=== PATIENT | male | born 1985 | race Caucasian/White ===

== ENCOUNTER 2017-03-09 05:57 | Day surgery (SDC) | payer OTHER ==
[2017-03-09] VITALS (15 sets, daily range): BP systolic 105–158; BP diastolic 79–98; PULSE 62–85; RESP 13–25; O2SAT 96–100
[~2017-03-09] VITALS: Ht 182.9 cm; Wt 165.6 kg
[~2017-03-09 05:57] MED LIST: CETI10CA PO; CITA10TA9 PO; ESOM40CA41 PO; LEVO200T6 PO; LORA1TAB PO; Lactated Ringer's 1,000 ML IV ONE
[2017-03-09] MEDS ORDERED: Propofol 10,000 mCg/mL 20 mL Inj ONE (05:58)
[2017-03-09] MEDS ORDERED: Ondansetron 2 mg/mL 2 mL Inj ONE (05:58)
[2017-03-09] MEDS ORDERED: Succinylcholine Chloride 20 mg/mL 5 mL Inj ONE (05:58)
[2017-03-09] MEDS ORDERED: MetoCLOpramide 5 mg/mL 2 mL Inj ONE (05:58)
[2017-03-09] MEDS ORDERED: fentaNYL-PF 50 mCg/mL 2 mL Inj ONE (05:58)
[2017-03-09] MEDS ORDERED: Dexamethasone Inj 20 MG in Dextrose 5%-Pha MIX 50 ML IV SCH (06:00)
[2017-03-09] MEDS ORDERED: Lactated Ringer's 1,000 ML IV ONE (06:30)
[2017-03-09] MEDS ORDERED: Lidocaine 1%-Epi 1:100,000 50 mL Inj INFILTRATE ONE (07:40)
[2017-03-09] MEDS ORDERED: Phenylephrine 10,000 mCg/mL Inj IVPUSH PRN (07:40)
[2017-03-09] MEDS ORDERED: EPHEDrine Sulfate 50 mg/mL Inj IVPUSH PRN (07:40)
[2017-03-09] MEDS ORDERED: fentaNYL-PF 50 mCg/mL 2 mL Inj IVPUSH PRN (07:40)
[2017-03-09] MEDS ORDERED: Dexamethasone 4 mg/mL Inj IVPUSH PRN (07:40)
[2017-03-09] MEDS ORDERED: Lactated Ringer's 500 ML IV PRN (07:40)
[2017-03-09] MEDS ORDERED: Ondansetron 2 mg/mL 2 mL Inj IVPUSH PRN (07:40)
[2017-03-09] MEDS ORDERED: HYDROmorphone 1 mg/mL Inj IVPUSH PRN (07:40)
[2017-03-09] MEDS ORDERED: MetoCLOpramide 5 mg/mL 2 mL Inj IVPUSH PRN (07:40)
[2017-03-09] MEDS ORDERED: Bupivacaine 0.5% 50 mL Inj INFILTRATE ONE (07:40)
[2017-03-09] MEDS ORDERED: Lactated Ringer's 1,000 ML IV SCH (07:40)
--- NOTE | 2017-03-09 07:44 | PCM.HPANE ---
Patient Data Surgeon Admitting Provider: Attending Provider:Charbel Ham MD Primary Care Physician:Jose A Other Provider:Zeferino Leblanc Anesthesia Reason for Visit Chronic Tonsillitis Ht/WT & BMI Height (Feet): 6 Weight (Kilograms): 165.56 Body Mass Index 49.00 Allergies Coded Allergies: Penicillins (Verified Allergy, Unknown, rash, 03/02/17) sertraline (Verified Allergy, Unknown, 03/02/17) Past Anesthesia History Anesthesia History: Denies:: Anesthesia Reactions (no prior surgery) Diabetes History Hx Diabetes?: No MRSA MRSA: No Medications Hypertension Medication: No Home Meds Incl Beta Jorden: No Reported Medications Lorazepam 1 Mg Tablet1 Mg PO TID PRN For Anxiety Ref 0 03/02/17 Cetirizine HCl (Zyrtec)10 Mg [id number] Mg PO HS #30 CAPSULE Ref 0 03/02/17 Citalopram 10 Mg [id number] Mg PO DAILY Ref 0 03/02/17 Esomeprazole Magnesium (Nexium)40 Mg Capsule.dr40 Mg PO DAILY Ref 0 03/02/17 Levothyroxine 200 Mcg [id number] Mcg PO DAILY Ref 0 03/02/17 History History of ENT Problems?: Yes HEENT History: Positive for:: Dysphagia (occasional) Denies:: Abnormal Airway Cataracts Difficult Intubation Glaucoma Hearing Problem Sinus Problem TMJ Denture Type: None Teeth Condition: Within Normal Limits Hx of Heart Problems?: No Cardiovascular History: Denies:: AICD Abdominal Aortic Aneurism Atrial Fibrillation Cardiac Surgery Chest Pain Congestive Heart Failure Coronary Artery Disease Edema Heart Murmur Hypertension Irregular Heartbeat Pacemaker Peripheral Vascular Rheumatic Fever Thrombophlebitis Valvular Heart Disease Hx of Respiratory Problem?: Yes Respiratory History: Positive for:: Use of C-PAP Machine Denies:: Asthma COPD Emphysema Oxygen Administration Use of Inhalers / NEBS Hx Neurologic Problems?: No Neurological History: Denies:: CVA Headaches Multiple Sclerosis Parkinson's Disease Seizures Hx of GI Problems?: Yes Hx of Problems?: No Male Hx: Denies:: Prostate Problems Skin History: Denies:: History Skin Disorders? Pressure Ulcers Hx Musculoskeletal Problems?: No Hx of Psycho/Social Problems?: Yes Psycho Social History: Positive for:: Anxiety Hx Surgeries?: No (no prior surgery) Hx Any Other Health Problems?: No Other History: Positive for:: Thyroid Disease Denies:: Cancer Hx Diabetes: No Hx Alcohol Use: NoHx Substance Use: Yes (prior hx of cocaine and marijuana) Stop/Bang Treated for Sleep Apnea?: Yes Do You Have a CPAP Machine?: Yes P-Blood Pressure: treated: No B- Body Mass Index > 35 kg/m2: Yes A- Age over 50: No N- Neck Large Circumference: Yes G- Gender Male: Yes JAUN Risk Assessment: High Risk, =/>3 Yes Risk Assessment Category Category 1A: Patient has history of documented sleep apnea, and HAS NOT received any narcotic, sedative or anesthesia administration during this stay. Category 1B: Patient has history of documented sleep apnea, and HAS received any narcotic , sedative or anesthesia administration during this stay Category 2: Patient has SUSPECTED Obstructive Sleep Apnea, and HAS received any narcotic , sedative or anesthesia administration during this stay. Category 3: Patient has SUSPECTED Obstructive Sleep Apnea and HAS NOT received narcotic, sedative or anesthesia administration during this stay. Category 4: Outpatient in Procedural Areas with known sleep apnea or who screen positive for High Risk via the STOP/BANG questionnaire. Exam Exam General Appearance: Oriented X3 HEENT/AIRWAY: MP 3 Lungs: Normal Air Movement Heart: Regular Rate/Rhythm Plan Impression Patient chart reviewed, patient interviewed and anesthestic plan with risks, benefits, and alternatives discussed, and informed consent obtained. ASA Physical Status: ASA3 Severe Disease Anesthetic Plan: GA Bene/Risks/Altern/Consents: Yes HP Complete Prior to Induction: Yes Helio Lowe MD March 09, 2017 07:44
--- NOTE | 2017-03-09 08:54 | OP ---
[address] [address] OPERATIVE REPORT PATIENT: EPI NIEVES : 1985 MR#: [id number] ADMIT: 03/09/2017 JOB ID: [id number] DATE OF SURGERY: 03/09/2017 SURGEON: Charbel Ham MD PREOPERATIVE DIAGNOSIS(ES): 1. Chronic tonsillitis. 2. Respiratory obstruction. POSTOPERATIVE DIAGNOSIS(ES): 1. Chronic tonsillitis. 2. Respiratory obstruction. INDICATION FOR PROCEDURE: 1. Chronic tonsillitis. 2. Respiratory obstruction. OPERATION PERFORMED: Tonsillectomy. FINDINGS: 3+ tonsils with tonsil stones on a scale of 0-4. OPERATIVE PROCEDURE: With the patient supine on the operating table, general orotracheal anesthesia was used. Tongue and soft palate retracted. No adenoid tissue found. Soft palate released. Bilateral extracapsular cautery technique tonsillectomy performed, and 2/3 of the uvula was removed at the patient's request. The posterior tonsillar pillar was divided and sutured laterally after suction cautery, ensured hemostasis and numerous 2-0 chromic sutures were utilized to lateralize the posterior tonsillar pillar and create additional airspace. The procedure was terminated. The patient was turned over to Anesthesia for emergence from anesthetics without known complications.
[2017-03-09] MEDS ORDERED: HYDROcodone-APAP 7.5-325 mg/15 mL 15 mL Solution ONE (09:48)
--- NOTE | 2017-03-09 10:18 | PCM.ANEP1 ---
Post Anesthesia PACU Phase 1 Assessment Vital Signs Vital Signs Date Time Temp Pulse Resp B/P Pulse Ox O2 Delivery O2 Flow Rate FiO2 03/09/17 09:40 36.3 64 18 156/91 96 Room Air 03/09/17 09:35 64 15 158/96 96 Room Air 03/09/17 09:32 71 13 157/96 96 Room Air 03/09/17 09:26 63 17 157/98 97 Room Air 03/09/17 09:16 62 13 158/92 96 Room Air 03/09/17 09:00 36.3 67 18 132/89 99 Room Air 03/09/17 08:55 84 21 138/83 99 Room Air 03/09/17 08:50 83 23 105/79 98 Room Air 03/09/17 08:45 75 23 117/84 98 Room Air 03/09/17 08:40 76 25 98 Simple Mask 8 03/09/17 08:35 36.0 85 19 133/80 97 Simple Mask 8 03/09/17 07:47 36.3 71 18 126/79 100 Room Air Anesthetic Administered: GA Level of Alertness: Awake, talking Pain: No Nausea or Vomiting: No CV Function and Hydration: Yes Airway Device: Nasal Airway Lungs: Normal Air Movement PACU Phase 2 Assessment Patient Instructions Provided: N/A Helio Lowe MD March 09, 2017 10:17
== END 2017-03-09 23:59 | disposition home or self-care (01) ==
LOC: SAS 05:57
PROVIDERS: ATTEND Otolaryngology Facial Plastic Surgery
DX: J35.01 Chronic tonsillitis (principal); G47.30 Sleep apnea, unspecified; J02.0 Streptococcal pharyngitis; I49.8 Other specified cardiac arrhythmias; K21.9 Gastro-esophageal reflux disease without esophagitis; F41.9 Anxiety disorder, unspecified; E07.9 Disorder of thyroid, unspecified; F17.220 Nicotine dependence, chewing tobacco, uncomplicated
CPT/HCPCS: 42826; J0330; J1170; J2250; J2270; J2405; J2765; J3010; J7120